=== PATIENT | male | born 1945 ===

== ENCOUNTER 2022-10-16 06:00 | Outpatient (RCR) | payer MEDICARE, SELFPAY | END 2022-10-29 23:59 | disposition home or self-care (01) | LOC: SPT 06:00 | PROVIDERS: Visit Provider Nurse Practitioner Family | DX: M54.31 Sciatica, right side (principal) | CPT/HCPCS: 97110; 97161; 97530 ==

== ENCOUNTER 2022-10-30 06:00 | Outpatient (RCR) | payer MEDICARE, MEDICAID, SELFPAY | END 2022-11-13 23:59 | disposition home or self-care (01) | LOC: SPT 06:00 | PROVIDERS: Visit Provider Nurse Practitioner Family | DX: M54.31 Sciatica, right side (principal) | CPT/HCPCS: 97110; 97140; 97530 ==